=== PATIENT | female | born 1990 | race Caucasian/White ===

== ENCOUNTER 2021-03-14 12:23 | Emergency (ER) | payer MEDICAID ==
[~2021-03-14] VITALS: Ht 167.6 cm; Wt 76.7 kg
--- NOTE | 2021-03-14 12:35 | NUR ---
Patient to ER bed 02 to gown for evaluation. Side rails up.
[2021-03-14 12:36] VITALS: BP_SYST 166
--- NOTE | 2021-03-14 12:40 | NUR ---
Pt. bib brother with c/o back pain since 2229 last night, states it is Right lower back, does not radiate and rates it 10/10, took tylenol last night nothing today, does have hx. of back problems but "nothing like this".
--- NOTE | 2021-03-14 13:30 | NUR ---
Pablo aglvan in ED - 03/14/21 at 1349 by [email or web address] EDWIN Minaya at bedside examining patient.
--- NOTE | 2021-03-14 13:59 | NUR ---
ER at bedside examining patient.
--- NOTE | 2021-03-14 14:01 | NUR ---
Pt. states pain 09/13 while in bed remaining perfectly still
[2021-03-14] MEDS ORDERED: ACETAMINOPHEN 500 MG TABLET PO ONE (14:15)
[2021-03-14] MEDS ORDERED: CYCLOBENZAPRINE HCL 10 MG TABLET (FLEXERIL) PO ONE (14:15)
[2021-03-14] MEDS ORDERED: KETOROLAC TROMETHAMINE 60 MG/2 ML VIAL IM ONE (14:15)
[2021-03-14] MEDS ORDERED: CYCL10TA24 PO (14:50)
[2021-03-14] MEDS ORDERED: ACET-2634 PO (14:50)
[2021-03-14] MEDS ORDERED: IBUP-1969 PO (14:50)
--- NOTE | 2021-03-14 15:55 | NUR ---
Patient given written and verbal discharge instructions and verbalizes understanding. ER Dr. Spencer discussed with patient the results and treatment provided. Patient in stable condition. ID arm band removed. Rx of Flexeril, Motrin, and Extra strenght tylenol given. Patient educated on pain management and to follow up with PMD. Pain Scale 2. Opportunity for questions provided and answered. Medication side effect fact sheet provided.
[2021-03-14 15:56] VITALS: BP_SYST 113
== END 2021-03-14 15:55 | disposition home or self-care (01) ==
LOC: SED 12:23
DX: M62.830 Muscle spasm of back (principal); Z79.899 Other long term (current) drug therapy
CPT/HCPCS: 81002; 81025; 96372; 99285; J1885